=== PATIENT | female | born 1945 | race Caucasian/White ===

== ENCOUNTER 2017-12-16 19:43 | Inpatient (IN) | payer MEDICARE, BC ==
[~2017-12-16] VITALS: Ht 157.5 cm; Wt 76.7 kg
[2017-12-16] VITALS (7 sets, daily range): BP systolic 126–155; BP diastolic 58–84
[~2017-12-16 19:43] MED LIST: CYCL10TA2 PO; FERR325T14 PO; LEVO150T5 PO; LEVO75TA PO; SERT100T8 PO; SERT50TA PO; SIMV40TA3 PO; VENTOLIN HFA18 GM IH
[2017-12-16] MEDS ORDERED: FERR325T14 PO (20:54)
[2017-12-16] MEDS ORDERED: ASCO10002 PO (20:54)
[2017-12-16] MEDS ORDERED: SERT100T PO (20:55)
[2017-12-16] MEDS ORDERED: DOCU-109 PO (20:56)
[2017-12-16] MEDS ORDERED: ONDANSETRON PF 4 MG/2 ML VIAL. IV PRN (21:45)
[2017-12-16] MEDS ORDERED: ACETAMINOPHEN 325 MG TABLET. PO PRN (21:45)
[2017-12-16] MEDS ORDERED: ASPI81TA59 PO (21:55)
[2017-12-16] MEDS ORDERED: oxyCODONE/APAP 5/325 1 TAB TABLET PO ONE (22:00)
[2017-12-16] MEDS: PANTOPRAZOLE SODIUM IV DRIP 80 MG in IV NORMAL SALINE 100ML 100 ML IV SCH (22:23)
[2017-12-16] MEDS ORDERED: IV RINGERS,LACTATED 1000ML 1,000 ML IV SCH (23:00)
[2017-12-16] MEDS: traZODone 50 MG TABLET. PO PRN (23:35)
[2017-12-16] MEDS ORDERED: NON FORMULARY ITEM (Albuterol Sulfate (Ventolin Hfa Inhaler) 2 PUFF) IH SCH (23:45)
[2017-12-16] MEDS ORDERED: 0.9 % SODIUM CHLORIDE 10 ML DISP.SYRIN. IV PRN (23:45)
[2017-12-16] MEDS ORDERED: BISACODYL 10 MG SUPP.RECT. PR PRN (23:45)
[2017-12-17] VITALS (14 sets, daily range): BP systolic 108–139; BP diastolic 49–72
[2017-12-17] MEDS ORDERED: ALBUTEROL SULFATE 2.5 MG/3 ML NEBU. NEB PRN (01:00)
[2017-12-17 04:39] LABS: HEMATOCRIT 31.5 % (36.0-47.0); RED BLOOD COUNT 3.78 x10^6/uL (3.50-5.40); RED CELL DISTRIBUTION WIDTH 19.1 % (11.5-14.5); WHITE BLOOD COUNT 4.7 x10^3/uL (4.0-11.0)
[2017-12-17 05:04] LABS: CALCIUM 8.8 mg/dL (8.5-10.1); CREATININE 0.9 mg/dL (0.6-1.0); GFR 61.9; POTASSIUM 3.6 mmol/L (3.5-5.1)
[2017-12-17] MEDS: PANTOPRAZOLE SODIUM IV DRIP 80 MG in IV NORMAL SALINE 100ML 100 ML IV SCH (08:19)
[2017-12-17] MEDS: LEVOTHYROXINE SODIUM IVP SCH (08:20)
[2017-12-17] MEDS: NORMAL SALINE IVP SCH (08:20)
[2017-12-17] MEDS: SERTRALINE 50 MG TABLET. PO SCH (08:27)
[2017-12-17] MEDS: ASCORBIC ACID 500 MG TABLET PO SCH ×2 (08:27→20:46)
--- NOTE | 2017-12-17 09:41 | PDOC2 ---
GI CONSULT Reason For Consult: Upper GI Bleed HPI: HPI: 72 y/o female admitted through ER. Reports "coffee-ground emesis" on Saturday and Saturday. H/o anemia on iron 500mg BID. Previous GI evaluation by Dr. Das - reports normal EGD and colonoscopy in 2000 and 2014, also reports SBCE in 2010 w/ "ulcers in the small bowel." Has been on and off iron since then. In September, anemia was worse requiring blood transfusion and IV infusion at [facility] - at that time was advised to increase PO iron from QD to BID. Stools are always dark due to iron - no change in this. Has periumbilical pain before vomiting, then resolves. Has some dizziness and SOA; however, neither are new symptoms. H/o AVR on ASA 81mg QD. No NSAIDs. Typically no issues w/ n/v or abd pain. No diarrhea or constipation. No change in appetite or weight. Occasional heartburn, takes Tums PRN. No dysphagia. S/p cholecystectomy. No liver or pancreas history. Hgb 11 (she thinks this is baseline - has labs Q 6 months w/ car sander), normal BUN. PMH: PMH: AVR, asthma, hysterectomy, appendectomy, cholecystectomy, cataract removal, right rotator cuff repair FH: Family History: Other (sister has ulcers) Social History: Smoke: Quit ALCOHOL: none Drugs: None ROS: GEN: Denies fevers, chills, sweats HEENT: Denies blurred vision, sore throat CV: Denies chest pain RESP: +SOA GI: Per HPI : Denies hematuria, dysuria ENDO: Denies weight changes NEURO: +dizziness MSK: +arthritis pain SKIN: Denies jaundice, pruritus Vitals: Vitals: Vital Signs Date Time Temp Pulse Resp B/P (MAP) Pulse Ox O2 Delivery O2 Flow Rate FiO2 12/17/17 06:00 43 15 133/58 (83) 99 Nasal Cannula 2.0 12/17/17 04:00 97.1 97.1 Labs: Labs: Laboratory Tests Test 12/17/17 04:10 White Blood Count 4.7 x10^3/uL (4.0-11.0) Red Blood Count 3.78 x10^6/uL (3.50-5.40) Hemoglobin 11.0 g/dL (12.0-15.5) Hematocrit 31.5 % (36.0-47.0) Mean Corpuscular Volume 83 fL (79-100) Mean Corpuscular Hemoglobin 29 pg (25-35) Mean Corpuscular Hemoglobin Concent 35 g/dL (31-37) Red Cell Distribution Width 19.1 % (11.5-14.5) Platelet Count 164 x10^3/uL (140-400) Activated Partial Thromboplast Time 32 SEC (24-38) Sodium Level 142 mmol/L (136-145) Potassium Level 3.6 mmol/L (3.5-5.1) Chloride Level 108 mmol/L (98-107) Carbon Dioxide Level 27 mmol/L (21-32) Anion Gap 7 (6-14) Blood Urea Nitrogen 16 mg/dL (7-20) Creatinine 0.9 mg/dL (0.6-1.0) Estimated GFR (Cockcroft-Gault) 61.9 Glucose Level 91 mg/dL (70-99) Calcium Level 8.8 mg/dL (8.5-10.1) Allergies: Coded Allergies: mushroom (Verified Allergy, Severe, Swelling, 01/26/15) procaine (Verified Allergy, Intermediate, 01/24/15) Medications: Current Medications Medications (Trade) Dose Ordered Sig/Jose Route PRN Reason Start Time Stop Time Status Last Admin Dose Admin Oxycodone/ Acetaminophen (Percocet 5/325) 1 tab 1X ONCE PO 12/16/17 22:00 12/16/17 22:01 DC 12/16/17 22:23 Ringer's Solution 1,000 ml @ 75 mls/hr [id number] IV 12/16/17 23:00 12/16/17 23:01 Trazodone HCl (Desyrel) 50 mg PRN Q6HRS PRN PO HICCUPS 12/16/17 21:45 12/16/17 23:35 Pantoprazole Sodium 80 mg/ Sodium Chloride 100 ml @ 10 mls/hr Q10H IV 12/16/17 22:15 12/17/17 08:19 Ascorbic Acid (Vitamin C) 1,000 mg BID PO 12/17/17 09:00 12/17/17 08:27 Sertraline HCl (Zoloft) 100 mg DAILY PO 12/17/17 09:00 12/17/17 08:27 Levothyroxine Sodium 75 mcg/ Sodium Chloride 5 ml @ 100 mls/hr DAILY IVP 12/17/17 09:00 12/17/17 08:20 Imaging: Imaging: - PE: GEN: NAD HEENT: Atraumatic, PERRL LUNGS: NC, clear anteriorly HEART: bradycardic ABD: NABS, S/ND/NT EXTREMITY: No edema SKIN: pale NEURO/PSYCH: A & O 3 A/P: A/P: Coffee-ground emesis H/o anemia - required blood transfusion and IV iron in 09/2017, has been on PO iron BID H/o "small bowel ulcers" - reportedly on SBCE in 2010 Occasional heartburn CRC screen - UTD, reports last colonoscopy w/ Dr. Das in 2014 H/o AVR on ASA -- Keep NPO for EGD this afternoon r/o UGI source. Continue PPI, monitor labs. NICOLE GIBBONS Dec 17, 2017 09:41
[2017-12-17] MEDS ORDERED: IV RINGERS,LACTATED 1000ML 1,000 ML IV SCH ×3 (09:56→14:00)
[2017-12-17] MEDS ORDERED: fentaNYL PF VIAL 100 MCG/2 ML VIAL IV PRN ×4 (10:00→10:30)
[2017-12-17] MEDS ORDERED: MIDAZOLAM HCL/PF 2 MG/2 ML VIAL. IV PRN (10:00)
[2017-12-17] MEDS ORDERED: LIDOCAINE 1% PF 2 ML VIAL. ID PRN ×2 (10:00→10:30)
[2017-12-17] MEDS ORDERED: PROCHLORPERAZINE 10 MG/2 ML VIAL. IV PRN (10:30)
[2017-12-17] MEDS ORDERED: oxyCODONE/APAP 5/325 1 TAB TABLET PO ONE (10:30)
[2017-12-17] MEDS ORDERED: ONDANSETRON PF 4 MG/2 ML VIAL. IV PRN (10:30)
[2017-12-17] MEDS ORDERED: MORPHINE SULFATE 2 MG/ML VIAL. IV PRN (10:30)
--- NOTE | 2017-12-17 14:06 | HP ---
ADMIT DATE: CHIEF COMPLAINT: Hematemesis and abdominal pain. HISTORY OF PRESENT ILLNESS: The patient is a pleasant 72-year-old female who presents to the ER with abdominal pain. She has been having coffee-ground emesis on Saturday and Saturday. She had previous GI evaluation by Dr. Das. He did an EGD in 2010. She says they did see some small ulcers on another endoscopy. She has been getting intermittent transfusions at [facility] because she has chronic anemia as well. She has been advised to take p.o. iron. Stools have always been dark, but no changes. She did have some dizziness and shortness of breath. In the ER, she was noted to be anemic with a hemoglobin of 11. I have discussed the case with ER physician. It appears she has a GI bleed. We are going to go ahead, admit the patient and consult GI. We have placed on proton pump inhibitor. She is going to go for endoscopy this afternoon. PAST MEDICAL HISTORY: AVR, asthma, GI bleeds, peptic ulcer disease, right rotator cuff, cataract surgery, cholecystectomy, appendectomy, hysterectomy. ALLERGIES: MUSHROOMS and PROCAINE. FAMILY HISTORY: Diabetes. SOCIAL HISTORY: She does not drink, smoke or take drugs. MEDICATIONS: She is on 11 home meds including albuterol, cyclobenzaprine, iron, simvastatin, aspirin, sertraline, docusate, Synthroid, and vitamin C. REVIEW OF SYSTEMS: GENERAL: No history of weight change, weakness or fevers. SKIN: No bruising, hair changes or rashes. EYES: No blurred, double or loss of vision. NOSE AND THROAT: No history of nosebleeds, hoarseness or sore throat. HEART: No history of palpitations, chest pain or shortness of breath on exertion. LUNGS: Denies cough, hemoptysis, wheezing or shortness of breath. GASTROINTESTINAL: She complains of abdominal pain and hematemesis. GENITOURINARY: No history of frequency, urgency, hesitancy or nocturia. NEUROLOGIC: Denies history of numbness, tingling, tremor or weakness. PSYCHIATRIC: No history of panic, anxiety or depression. ENDOCRINE: No history of heat or cold intolerance, polyuria or polydipsia. EXTREMITIES: Denies muscle weakness, joint pain, pain on walking or stiffness. PHYSICAL EXAMINATION: VITAL SIGNS: Temperature afebrile, pulse 92, respirations 18, blood pressure is 135/72, O2 sat 92% on 2 liters. GENERAL: She is alert, cooperative, weak. HEART: Normal S1, S2 with a soft S3, regular rhythm. LUNGS: Clear to auscultation in all lung mckeon. ABDOMEN: Soft, tender in the epigastrium. EXTREMITIES: Trace edema. Pedal pulses are intact. ENDOCRINE: No thyromegaly. LYMPHATICS: No cervical nodes or axillary nodes were noted. HEMATOPOIETIC: No bruising. PSYCHIATRIC: She seems to be stable, but a little flat on her affect. LABORATORY DATA: White count 4, hemoglobin 11, platelets 164. Electrolytes are normal. ASSESSMENT AND PLAN: Gastrointestinal bleed. The patient will be admitted. We will start IV proton pump inhibitors. Cardiac monitoring. Consult GI. She is scheduled for endoscopy this afternoon. Continue previous home meds, IV fluids, IV proton pump inhibitors. We will follow her hemoglobin closely and transfuse if she is less than 8. PROGNOSIS: Guarded. REBECCA TOURE DO DR: DIANE/sanjay JOB#: [id number] / [id number]
[2017-12-17] MEDS ORDERED: PROPOFOL 20 ML IV ONE (14:56)
--- NOTE | 2017-12-17 15:06 | PDOC4 ---
PROCEDURE Procedure EGD coffee ground emesis anesthesia EGD- normal esophagus, gastritis, normal small bowel- NO blood or coffee grounds Plan- check bx, continue PPI, add carafate, repeat pill cam as outpt CARMELO SANCHEZ MD Dec 17, 2017 15:06
[2017-12-17] MEDS: SIMVASTATIN 40 MG TABLET. PO SCH (20:45)
[2017-12-17] MEDS: SUCRALFATE 1 GM TABLET. PO SCH (20:46)
[2017-12-17] MEDS: HYDROcodone/APAP 5/325MG 1 TAB TABLET PO PRN (21:39)
[2017-12-18] VITALS (9 sets, daily range): BP systolic 99–135; BP diastolic 36–63
[2017-12-18] MEDS: traZODone 50 MG TABLET. PO PRN ×2 (01:53→20:10)
[2017-12-18] MEDS: PANTOPRAZOLE 40 MG TABLET.DR. PO SCH (07:45)
[2017-12-18] MEDS: NORMAL SALINE IVP SCH (07:45)
[2017-12-18] MEDS: LEVOTHYROXINE SODIUM IVP SCH (07:45)
[2017-12-18] MEDS: HYDROcodone/APAP 5/325MG 1 TAB TABLET PO PRN ×3 (08:11→20:10)
[2017-12-18] MEDS: ASCORBIC ACID 500 MG TABLET PO SCH ×2 (08:41→20:09)
[2017-12-18] MEDS: SERTRALINE 50 MG TABLET. PO SCH (08:41)
[2017-12-18] MEDS: SUCRALFATE 1 GM TABLET. PO SCH ×2 (10:49→20:10)
[2017-12-18] MEDS ORDERED: SUCR1TAB35 PO (11:52)
[2017-12-18] MEDS ORDERED: Pantoprazole PO (11:52)
--- NOTE | 2017-12-18 11:55 | PDOC ---
PROGRESS NOTES Chief Complaint Chief Complaint GAstritis, small hiatal hernia status post EGD 12/17/17 Coffee-ground emesis H/o anemia - required blood transfusion and IV iron in 09/2017, has been on PO iron BID H/o "small bowel ulcers" - reportedly on SBCE in 2010 Occasional heartburn CRC screen - UTD, reports last colonoscopy w/ Dr. Das in 2014 H/o AVR on ASA ORTHOSTASIS with dizziness History of Present Illness History of Present Illness Cleared from GI to go home, tolerating a diet, hemodynamically stable. But now tells me orthostatic and dizzy She did drop 10 points from supine to sitting position Plan: Abdominal binder Can consult neurology If no further workup and feels better can go home today with PPI and Carafate by GI - I have Rx'd on chart Vitals Vitals Vital Signs Date Time Temp Pulse Resp B/P (MAP) Pulse Ox O2 Delivery O2 Flow Rate FiO2 12/18/17 11:08 104/40 (61) 12/18/17 11:00 98.1 55 97 Room Air 98.1 12/18/17 09:25 95.8 12/18/17 07:00 16 Physical Exam General: Alert, Oriented X3, Cooperative, No acute distress Heart: Regular rate, Normal S1, Normal S2, No murmurs Lungs: Clear Abdomen: Normal bowel sounds, Soft, No tenderness Extremities: No clubbing, No cyanosis, No edema Skin: No rashes, No breakdown, No significant lesion Review of Systems Review of Systems dizzy, otherwise rest of ROS 14 point negative Comment Review of Relevant I have reviewed the following items pradeep (where applicable) has been applied. Labs Laboratory Tests Test 12/16/17 21:00 12/17/17 04:10 Nasal Screen MRSA (PCR) Negative (Negative) White Blood Count 4.7 x10^3/uL (4.0-11.0) Red Blood Count 3.78 x10^6/uL (3.50-5.40) Hemoglobin 11.0 g/dL (12.0-15.5) Hematocrit 31.5 % (36.0-47.0) Mean Corpuscular Volume 83 fL (79-100) Mean Corpuscular Hemoglobin 29 pg (25-35) Mean Corpuscular Hemoglobin Concent 35 g/dL (31-37) Red Cell Distribution Width 19.1 % (11.5-14.5) Platelet Count 164 x10^3/uL (140-400) Reticulocyte Count (auto) 1.5 % (0.5-2.5) Activated Partial Thromboplast Time 32 SEC (24-38) Sodium Level 142 mmol/L (136-145) Potassium Level 3.6 mmol/L (3.5-5.1) Chloride Level 108 mmol/L (98-107) Carbon Dioxide Level 27 mmol/L (21-32) Anion Gap 7 (6-14) Blood Urea Nitrogen 16 mg/dL (7-20) Creatinine 0.9 mg/dL (0.6-1.0) Estimated GFR (Cockcroft-Gault) 61.9 Glucose Level 91 mg/dL (70-99) Calcium Level 8.8 mg/dL (8.5-10.1) Iron Level 51 ug/dL (50-170) Total Iron Binding Capacity 262 ug/dL (250-450) Iron Saturation 19 % (15-34) Vitamin B12 Level 553 pg/mL (247-911) Medications Current Medications Ondansetron HCl (Zofran) 4 mg PRN Q6HRS PRN IV NAUSEA/VOMITING; Start at 21:45 Oxycodone/ Acetaminophen (Percocet 5/325) 1 tab 1X ONCE PO Last administered on 12/16/17at 22:23; Start 12/16/17 at 22:00; Stop 12/17/17 at 18:11; Status DC Acetaminophen (Tylenol) 650 mg PRN Q6HRS PRN PO MILD PAIN / TEMP; Start at 21:45 Ringer's Solution 1,000 ml @ 75 mls/hr [id number] IV Last administered on at 23:01; Start 12/16/17 at 23:00; Stop 12/17/17 at 18:11; Status DC Trazodone HCl (Desyrel) 50 mg PRN Q6HRS PRN PO HICCUPS Last administered on at 01:53; Start 12/16/17 at 21:45 Pantoprazole Sodium 80 mg/ Sodium Chloride 100 ml @ 10 mls/hr Q10H IV Last administered on 12/17/17at 08:19; Start 12/16/17 at 22:15; Stop 12/17/17 at 15 :09; Status DC Influenza Virus Vaccine (Afluria Trivalent [id number] Syringe) 0.5 ml ONCE ONCE VAX IM Last administered on 12/17/17at 17:47; Start 12/17/17 at 09:00; Stop 12/17/17 at 09:01; Status DC Sodium Chloride (Normal Saline Flush) 3 ml QSHIFT PRN IV AFTER MEDS AND BLOOD DRAWS; Start 12/16/17 at 23:45 Bisacodyl (Dulcolax Supp) 10 mg PRN DAILY PRN [place] CONSTIPATION; Start 12/16/17 at 23:45 Non-Formulary Medication (Albuterol Sulfate (Ventolin Hfa Inhaler)) 2 puff PRN Q4-6HRS IH ; Start 12/16/17 at 23:45; Status UNV Ascorbic Acid (Vitamin C) 1,000 mg BID PO Last administered on 12/18/17at 08:41 ; Start 12/17/17 at 09:00 Sertraline HCl (Zoloft) 100 mg DAILY PO Last administered on 12/18/17at 08:41; Start 12/17/17 at 09:00 Simvastatin (Zocor) 40 mg QHS PO Last administered on 12/17/17at 20:45; Start 12/17/17 at 21:00 Levothyroxine Sodium 75 mcg/ Sodium Chloride 5 ml @ 100 mls/hr DAILY IVP Last administered on 12/18/17at 07:45; Start 12/17/17 at 09:00; Stop 12/18/17 at 09 :00; Status DC Albuterol Sulfate (Ventolin Neb Soln) 2.5 mg PRN Q4HRS PRN NEB SHORTNESS OF BREATH; Start 12/17/17 at 01:00 Midazolam HCl (Versed) 2 mg PRN 1X PRN IV PRIOR TO PROCEDURE; Start 12/17/17 at 10:00; Stop 12/17/17 at 18:00; Status DC Fentanyl Citrate (Fentanyl 2ml Vial) 25 mcg PRN Q5MIN PRN IV X 2 DOSES FOR PAIN ; Start 12/17/17 at 10:00; Stop 12/17/17 at 18:00; Status DC Fentanyl Citrate (Fentanyl 2ml Vial) 50 mcg PRN Q5MIN PRN IV X 2 DOSES FOR PAIN ; Start 12/17/17 at 10:00; Stop 12/17/17 at 18:00; Status DC Ringer's Solution 1,000 ml @ 125 mls/hr Q8H IV Last administered on at 12:05; Start 12/17/17 at 09:56; Stop 12/17/17 at 13:59; Status DC Lidocaine HCl (Xylocaine-Mpf 1% 2ml Vial) 2 ml 1X PRN PRN ID IV START; Start 12/17/17 at 10:00; Stop 12/17/17 at 18:00; Status DC Ondansetron HCl (Zofran) 4 mg PRN Q6HRS PRN IV NAUSEA/VOMITING; Start at 10:30; Stop 12/18/17 at 10:29; Status UNV Fentanyl Citrate (Fentanyl 2ml Vial) 25 mcg PRN Q5MIN PRN IV MILD PAIN; Start 12/17/17 at 10:30; Stop 12/18/17 at 10:29; Status UNV Fentanyl Citrate (Fentanyl 2ml Vial) 50 mcg PRN Q5MIN PRN IV MODERATE TO SEVERE PAIN; Start 12/17/17 at 10:30; Stop 12/18/17 at 10:29; Status UNV Morphine Sulfate (Morphine Sulfate) 1 mg PRN Q10MIN PRN IV SEVERE PAIN; Start 12/17/17 at 10:30; Stop 12/17/17 at 18:11; Status DC Ringer's Solution 1,000 ml @ 30 mls/hr Q24H IV ; Start 12/17/17 at 10:18; Stop 12/17/17 at 22:17; Status UNV Lidocaine HCl (Xylocaine-Mpf 1% 2ml Vial) 2 ml 1X PRN PRN ID IV START; Start 12/17/17 at 10:30; Stop 12/18/17 at 10:29; Status UNV Prochlorperazine Edisylate (Compazine) 5 mg PACU PRN PRN IV NAUSEA, MRX1; Start 12/17/17 at 10:30; Stop 12/17/17 at 19:00; Status DC Oxycodone/ Acetaminophen (Percocet 5/325) 1 tab 1X ONCE PO Last administered on 12/17/17at 10:30; Start 12/17/17 at 10:30; Stop 12/17/17 at 10:31; Status DC Ringer's Solution 1,000 ml @ 75 mls/hr [id number] IV Last administered on at 13:58; Start 12/17/17 at 14:00; Stop 12/17/17 at 18:11; Status DC Propofol 20 ml @ As Directed STK-MED ONCE IV ; Start 12/17/17 at 14:56; Stop 12/17/17 at 14:57; Status DC Sucralfate (Carafate) 1 gm BID@1000,2200 PO Last administered on 12/18/17at 10: 49; Start 12/17/17 at 22:00 Pantoprazole Sodium (Protonix) 40 mg DAILYAC PO Last administered on at 07:45; Start 12/18/17 at 07:30 Acetaminophen/ Hydrocodone Bitart (Lortab 5/325) 1 tab PRN Q4HRS PRN PO PAIN Last administered on 12/18/17at 08:11; Start 12/17/17 at 17:30 Levothyroxine Sodium (Synthroid) 150 mcg DAILY06 PO ; Start 12/19/17 at 06:00 Active Scripts Active [Pantoprazole] 40 MG Tablet.dr 40 Mg PO DAILYAC 30 Days Carafate (Sucralfate) 1 Gm Tablet 1 Gm PO BID@1000,2200 30 Days Ferrous Sulfate 325 Mg Tablet 1 Tab PO DAILY Reported Children's Aspirin (Aspirin) 81 Mg Tab.chew 81 Mg PO DAILY Colace (Docusate Sodium) 100 Mg Capsule 1 Cap PO PRN Zoloft (Sertraline Hcl) 100 Mg Tablet 1 Tab PO BID Vitamin C (Ascorbic Acid) 1,000 Mg Tablet 1,000 Mg PO BID Ferrous Sulfate 325 Mg Tablet 500 Mg PO BID Cyclobenzaprine Hcl 10 Mg Tablet 10 Mg PO PRN TID PRN Levothyroxine Sodium 150 Mcg Tablet 150 Mcg PO DAILYAC Sertraline Hcl 100 Mg Tablet 100 Mg PO DAILY Simvastatin 40 Mg Tablet 1 Tab PO QHS Ventolin Hfa Inhaler (Albuterol Sulfate) 18 Gm Hfa.aer.ad 2 Puff IH PRN Q4-6HRS Vitals/I & O Vital Sign - Last 24 Hours 12/17/17 12/17/17 12/17/1712/17/18 12:00 12:00 13:49 13:49 Temp 97 97.0 Pulse 51 Resp 16 18 B/P (MAP) 133/62 (85) Pulse Ox 95 95 O2 Delivery Room Air Room Air Room Air O2 Flow Rate 2.0 12/17/17 12/17/17 12/17/17 12/17/17 15:05 15:20 15:48 16:02 Temp 97.5 97.5 Pulse 52 49 Resp 16 18 16 B/P (MAP) 140/66 115/56 114/64 (81) Pulse Ox 95 97 95 O2 Delivery Room Air Room Air Room Air O2 Flow Rate 97.0 12/17/17 12/17/17 12/17/17 12/17/17 18:00 19:00 20:00 21:39 Temp 97.7 95.8 97.7 95.8 Pulse 51 50 Resp 18 16 B/P (MAP) 138/51 (80) 138/49 (78) Pulse Ox 95 96 O2 Delivery Room Air Room Air Room Air Room Air O2 Flow Rate 97.0 95.8 97.0 12/17/17 12/18/17 12/18/17 12/18/17 23:00 03:00 07:00 08:00 Temp 98.4 95.4 97.7 98.4 95.4 97.7 Pulse 48 49 51 Resp 16 16 16 B/P (MAP) 131/63 (85) 135/59 (84) 99/57 (71) Pulse Ox 96 92 92 O2 Delivery Room Air Room Air Room Air Room Air 12/18/17 12/18/17 12/18/17 12/18/17 08:11 08:45 09:25 11:00 Temp 98.1 98.1 Pulse 54 55 B/P (MAP) 100/63 (75) 118/55 (76) Pulse Ox 92 92 97 O2 Delivery Room Air Room Air Room Air O2 Flow Rate 95.8 95.8 12/18/17 12/18/17 11:05 11:08 B/P (MAP) 107/52 (70) 104/40 (61) Intake and Output 12/17/17 12/17/17 12/18/17 15:00 23:00 07:00 Intake Total 50 ml 532 ml 400 ml Balance 50 ml 532 ml 400 ml TERMULO,BRIGITTE Y MD Dec 18, 2017 11:55
--- NOTE | 2017-12-18 12:01 | PDOC ---
Subjective: Subjective: I saw her earlier this morning. Tolerating PO - no n/v of coffee-ground emesis. Feels dizzy when she sits up - room spins a little. Says she "doesn't retain salt." Wants to restart iron pills. Objective: Vital Signs: Vital Signs Date Time Temp Pulse Resp B/P (MAP) Pulse Ox O2 Delivery O2 Flow Rate FiO2 12/18/17 11:08 104/40 (61) 12/18/17 11:00 98.1 55 97 Room Air 98.1 12/18/17 09:25 95.8 12/18/17 07:00 16 Imaging: EGD 12/17 normal esophagus, gastritis, normal small bowel- NO blood or coffee grounds PE: GEN: NAD LUNGS: CTAB HEART: bradycardic ABD: NABS, S/ND/NT NEURO/PSYCH: A & O 3 A/P: Coffee-ground emesis - no recurrence -gastritis on EGD as above, path pending Chronic anemia -reports SBCE in 2010, last colonoscopy 2014 -- Plans to check hemogram tomorrow. Note neurology consulted re: dizziness. Continue PPI and Carate. Resume PO iron. Await gastric biopsies r/o H. pylori. Will plan to follow-up outpt re: SBCE - might need colonoscopy as well to satisfy insurance requirements. NICOLE GIBBONS Dec 18, 2017 12:01
[2017-12-18] MEDS ORDERED: FERROUS SULFATE ORAL 300 MG/5 ML SOLUTION. PO SCH (12:30)
[2017-12-18] MEDS ORDERED: BENZOCAINE/MENTHOL LOZENGE. PO PRN (13:45)
--- NOTE | 2017-12-18 15:03 | RAD ---
Carotid ultrasound, 12/18/2017: HISTORY: Dizziness, unsteadiness Duplex evaluation of the carotid arteries and neck was performed including grayscale, color-flow and spectral Doppler analysis. There is only minimal smooth plaquing at the carotid bifurcations. The peak systolic velocity in the right internal carotid artery is 84 cm/s with an end-diastolic velocity of 17 cm/s and an internal carotid to common carotid artery ratio 1.1. On the left the peak systolic velocity in the internal carotid artery is 106 cm/s with an end-diastolic velocity of 16 cm/s and an internal carotid to common carotid artery ratio of 1.3. These Doppler findings suggest luminal narrowing in the 0-50 percent diameter range. Antegrade flow is present in both vertebral arteries in the neck. IMPRESSION: Minimal atherosclerotic plaquing at the carotid bifurcations with underlying luminal narrowing in the 0-50 percent diameter range bilaterally. Note: Stenosis calculations for CT, MRA and conventional angiography are based upon determination of the distal ICA diameter in accordance with the NASCET methodology. Electronically signed by: Glen Chamberlain MD (12/18/2017 3:00 PM) [facility]
--- NOTE | 2017-12-18 15:46 | PDOC2 ---
NEUROLOGY CONSULT Date of Admission Date of Admission DATE: 12/18/17 TIME: 15:27 Reason for Consult Reason for Consult: IMPRESSION: Worsening of dizziness. Gait instability. Abnormal semi controllable movements. Vertigo. BPPV ? Peptic ulcer disease. Gastritis. Obesity. RECOMMENDATIONS/PLAN: Brain MRI w/o contrast. Lab: see orders. Meclizine 25 mg tid. Treat medical diseases. OT/PT. Discussed with her daughter at bedside on 12/08/17. Carotid A US + Doppler on 12/18/17: No high grade stenosis. HISTORY OF THE PRESENT ILLNESS: 72-y-old female patient with above medical and GI diseases was admitted into [facility] for further evaluation. While performing EGD procedure on her, she developed symptoms of dizziness, light headiness, vertigo , sense of room and self spinning. Her symptoms persistent and became obvious when she change positions, but orthostatic hypotension occurred. She stated she had similar symptoms before about several times a year, but nerve as severe as this time. PAST MEDICAL HISTORY: AVR, asthma, GI bleeds, peptic ulcer disease. Vertigo. PAST SURGERY HISTORY: Right rotator cuff, cataract surgery, cholecystectomy, appendectomy, hysterectomy. ALLERGIES: MUSHROOMS and PROCAINE. FAMILY HISTORY: Diabetes. MEDICATIONS: Refer to [facility] SOCIAL HISTORY: Lives at home. Denies current smoking, drinking, and illicit drug use. She was a former smoker. REVIEW OF SYSTEMS: Constitutional: Obesity. Head: No traumatic brain or head injury. Skin: No edema, or rash. Ear: No infection. Eyes: No vision loss or color blindness. Nose: No bleeding or purulent discharges. Hearing: Hearing decrease. Neck: No injury. Breast: No history of cancer, masses,or discharges. Cardiac: No NH, arrhythmia.. Pulmonary: No COPD. GI: GI ulcer, GI bleeding. Urinary/genital: UTI. Endocrinologic: Obesity. Skeletomuscular: No muscular atrophy, deformity. Neurological: see HP. Psychiatric: Denies drug use/abuse. Otherwise, not [id number] review of systems. PHYSICAL EXAMINATION: General appearance is in subacute distress. HEENT: Normocephalic and nontraumatic. Eyes, nose, ears, and throat are unremarkable. Neck is supple. No lymphadenopathy. No bruits are heard over the carotid artery. No crepitus. Cardiovascular: S1, S2, regular rate and rhythm. Pulmonary: Clear to auscultation bilaterally. Abdomen: Bowel sounds are positive. Extremities: No rash, lesions, or edema. No restriction of range of motion NEUROLOGICAL EXAMINATION: Alert Oriented to time, place and person. PERRL. EOMI. CN: no focal findings. Muscle tone: within normal. Muscle strength: 5 DTR: 2 Plantar reflex: Flexor response bilaterally Gait: not examined in bed. Sensory exam: no abnormal findings. No cerebellar signs elicited. F-T-N test fine. Continued movements noted in UE and LE. Current Medications Current Medications Current Medications Ondansetron HCl (Zofran) 4 mg PRN Q6HRS PRN IV NAUSEA/VOMITING; Start at 21:45 Oxycodone/ Acetaminophen (Percocet 5/325) 1 tab 1X ONCE PO Last administered on 12/16/17at 22:23; Start 12/16/17 at 22:00; Stop 12/17/17 at 18:11; Status DC Acetaminophen (Tylenol) 650 mg PRN Q6HRS PRN PO MILD PAIN / TEMP; Start at 21:45 Ringer's Solution 1,000 ml @ 75 mls/hr [id number] IV Last administered on at 23:01; Start 12/16/17 at 23:00; Stop 12/17/17 at 18:11; Status DC Trazodone HCl (Desyrel) 50 mg PRN Q6HRS PRN PO HICCUPS Last administered on at 01:53; Start 12/16/17 at 21:45 Pantoprazole Sodium 80 mg/ Sodium Chloride 100 ml @ 10 mls/hr Q10H IV Last administered on 12/17/17at 08:19; Start 12/16/17 at 22:15; Stop 12/17/17 at 15 :09; Status DC Influenza Virus Vaccine (Afluria Trivalent [id number] Syringe) 0.5 ml ONCE ONCE VAX IM Last administered on 12/17/17at 17:47; Start 12/17/17 at 09:00; Stop 12/17/17 at 09:01; Status DC Sodium Chloride (Normal Saline Flush) 3 ml QSHIFT PRN IV AFTER MEDS AND BLOOD DRAWS; Start 12/16/17 at 23:45 Bisacodyl (Dulcolax Supp) 10 mg PRN DAILY PRN [place] CONSTIPATION; Start 12/16/17 at 23:45 Non-Formulary Medication (Albuterol Sulfate (Ventolin Hfa Inhaler)) 2 puff PRN Q4-6HRS IH ; Start 12/16/17 at 23:45; Status UNV Ascorbic Acid (Vitamin C) 1,000 mg BID PO Last administered on 12/18/17at 08:41 ; Start 12/17/17 at 09:00 Sertraline HCl (Zoloft) 100 mg DAILY PO Last administered on 12/18/17at 08:41; Start 12/17/17 at 09:00 Simvastatin (Zocor) 40 mg QHS PO Last administered on 12/17/17at 20:45; Start 12/17/17 at 21:00 Levothyroxine Sodium 75 mcg/ Sodium Chloride 5 ml @ 100 mls/hr DAILY IVP Last administered on 12/18/17at 07:45; Start 12/17/17 at 09:00; Stop 12/18/17 at 09 :00; Status DC Albuterol Sulfate (Ventolin Neb Soln) 2.5 mg PRN Q4HRS PRN NEB SHORTNESS OF BREATH; Start 12/17/17 at 01:00 Midazolam HCl (Versed) 2 mg PRN 1X PRN IV PRIOR TO PROCEDURE; Start 12/17/17 at 10:00; Stop 12/17/17 at 18:00; Status DC Fentanyl Citrate (Fentanyl 2ml Vial) 25 mcg PRN Q5MIN PRN IV X 2 DOSES FOR PAIN ; Start 12/17/17 at 10:00; Stop 12/17/17 at 18:00; Status DC Fentanyl Citrate (Fentanyl 2ml Vial) 50 mcg PRN Q5MIN PRN IV X 2 DOSES FOR PAIN ; Start 12/17/17 at 10:00; Stop 12/17/17 at 18:00; Status DC Ringer's Solution 1,000 ml @ 125 mls/hr Q8H IV Last administered on at 12:05; Start 12/17/17 at 09:56; Stop 12/17/17 at 13:59; Status DC Lidocaine HCl (Xylocaine-Mpf 1% 2ml Vial) 2 ml 1X PRN PRN ID IV START; Start 12/17/17 at 10:00; Stop 12/17/17 at 18:00; Status DC Ondansetron HCl (Zofran) 4 mg PRN Q6HRS PRN IV NAUSEA/VOMITING; Start at 10:30; Stop 12/18/17 at 10:29; Status UNV Fentanyl Citrate (Fentanyl 2ml Vial) 25 mcg PRN Q5MIN PRN IV MILD PAIN; Start 12/17/17 at 10:30; Stop 12/18/17 at 10:29; Status UNV Fentanyl Citrate (Fentanyl 2ml Vial) 50 mcg PRN Q5MIN PRN IV MODERATE TO SEVERE PAIN; Start 12/17/17 at 10:30; Stop 12/18/17 at 10:29; Status UNV Morphine Sulfate (Morphine Sulfate) 1 mg PRN Q10MIN PRN IV SEVERE PAIN; Start 12/17/17 at 10:30; Stop 12/17/17 at 18:11; Status DC Ringer's Solution 1,000 ml @ 30 mls/hr Q24H IV ; Start 12/17/17 at 10:18; Stop 12/17/17 at 22:17; Status UNV Lidocaine HCl (Xylocaine-Mpf 1% 2ml Vial) 2 ml 1X PRN PRN ID IV START; Start 12/17/17 at 10:30; Stop 12/18/17 at 10:29; Status UNV Prochlorperazine Edisylate (Compazine) 5 mg PACU PRN PRN IV NAUSEA, MRX1; Start 12/17/17 at 10:30; Stop 12/17/17 at 19:00; Status DC Oxycodone/ Acetaminophen (Percocet 5/325) 1 tab 1X ONCE PO Last administered on 12/17/17at 10:30; Start 12/17/17 at 10:30; Stop 12/17/17 at 10:31; Status DC Ringer's Solution 1,000 ml @ 75 mls/hr [id number] IV Last administered on at 13:58; Start 12/17/17 at 14:00; Stop 12/17/17 at 18:11; Status DC Propofol 20 ml @ As Directed STK-MED ONCE IV ; Start 12/17/17 at 14:56; Stop 12/17/17 at 14:57; Status DC Sucralfate (Carafate) 1 gm BID@1000,2200 PO Last administered on 12/18/17at 10: 49; Start 12/17/17 at 22:00 Pantoprazole Sodium (Protonix) 40 mg DAILYAC PO Last administered on at 07:45; Start 12/18/17 at 07:30 Acetaminophen/ Hydrocodone Bitart (Lortab 5/325) 1 tab PRN Q4HRS PRN PO PAIN Last administered on 12/18/17at 13:30; Start 12/17/17 at 17:30 Levothyroxine Sodium (Synthroid) 150 mcg DAILY06 PO ; Start 12/19/17 at 06:00 Ferrous Sulfate (Iron Oral Solution) 300 mg BIDWMEALS PO Last administered on 12/18/17at 13:29; Start 12/18/17 at 12:30 Fluticasone Propionate (Flonase) 2 spray DAILY NS ; Start 12/18/17 at 14:30 Throat Lozenges (Cepacol Sore Throat Lozenge) 1 [place] PRN Q2HRS PRN PO SORE THROAT; Start 12/18/17 at 13:45; Status UNV Pseudoephedrine HCl (Sudafed 12-Hour) 120 mg BID PO ; Start 12/18/17 at 14:30 Active Scripts Active [Pantoprazole] 40 MG Tablet.dr 40 Mg PO DAILYAC 30 Days Carafate (Sucralfate) 1 Gm Tablet 1 Gm PO BID@1000,2200 30 Days Ferrous Sulfate 325 Mg Tablet 1 Tab PO DAILY Reported Children's Aspirin (Aspirin) 81 Mg Tab.chew 81 Mg PO DAILY Colace (Docusate Sodium) 100 Mg Capsule 1 Cap PO PRN Zoloft (Sertraline Hcl) 100 Mg Tablet 1 Tab PO BID Vitamin C (Ascorbic Acid) 1,000 Mg Tablet 1,000 Mg PO BID Ferrous Sulfate 325 Mg Tablet 500 Mg PO BID Cyclobenzaprine Hcl 10 Mg Tablet 10 Mg PO PRN TID PRN Levothyroxine Sodium 150 Mcg Tablet 150 Mcg PO DAILYAC Sertraline Hcl 100 Mg Tablet 100 Mg PO DAILY Simvastatin 40 Mg Tablet 1 Tab PO QHS Ventolin Hfa Inhaler (Albuterol Sulfate) 18 Gm Hfa.aer.ad 2 Puff IH PRN Q4-6HRS Allergies Allergies: Allergies Coded Allergies Type Severity Reaction Last Updated Verified mushroom Allergy Severe Swelling 12/17/17 Yes procaine Allergy Intermediate 12/17/17 Yes ROS Review of System The patient denies any associated fevers, chills, headache, ear pain, rhinorrhea , sore throat, stiff neck, productive cough, chest pain, shortness of breath, back or flank pain, abdominal pain, nausea, vomiting, diarrhea, constipation, dysuria, rash, numbness, weakness, tingling, incontinence, difficulty ambulating, or diaphoresis. Physical Exam Physical Exam General: Well developed, well nourished, no acute distress, well appearing HEENT: Pupils equally round and reactive to light, EOMI, no discharge, normal conjunctiva Neck: Supple, no nuchal rigidity, no JVD, trachea midline, no tenderness Cardiac: RRR, no murmurs, no gallops, no rubs Chest/Lungs: CTAB, no wheeze, no rhonchi, no crackles Abdomen: soft, non-distended, no guarding, no peritoneal signs, non-tender Back: No tenderness Extremities: no edema, pulses intact, non-tender,capillary refill <3 sec bilateral upper and lower extremities, Neuro: Alert and oriented x 4, no focal deficits, normal speech Vitals Vitals: Vital Signs Date Time Temp Pulse Resp B/P (MAP) Pulse Ox O2 Delivery O2 Flow Rate FiO2 12/18/17 13:30 97 Room Air 95.8 12/18/17 11:08 104/40 (61) 12/18/17 11:00 98.1 55 98.1 12/18/17 07:00 16 Labs Labs Laboratory Tests Test 12/16/17 21:00 12/17/17 04:10 Nasal Screen MRSA (PCR) Negative (Negative) White Blood Count 4.7 x10^3/uL (4.0-11.0) Red Blood Count 3.78 x10^6/uL (3.50-5.40) Hemoglobin 11.0 g/dL (12.0-15.5) Hematocrit 31.5 % (36.0-47.0) Mean Corpuscular Volume 83 fL (79-100) Mean Corpuscular Hemoglobin 29 pg (25-35) Mean Corpuscular Hemoglobin Concent 35 g/dL (31-37) Red Cell Distribution Width 19.1 % (11.5-14.5) Platelet Count 164 x10^3/uL (140-400) Reticulocyte Count (auto) 1.5 % (0.5-2.5) Activated Partial Thromboplast Time 32 SEC (24-38) Sodium Level 142 mmol/L (136-145) Potassium Level 3.6 mmol/L (3.5-5.1) Chloride Level 108 mmol/L (98-107) Carbon Dioxide Level 27 mmol/L (21-32) Anion Gap 7 (6-14) Blood Urea Nitrogen 16 mg/dL (7-20) Creatinine 0.9 mg/dL (0.6-1.0) Estimated GFR (Cockcroft-Gault) 61.9 Glucose Level 91 mg/dL (70-99) Calcium Level 8.8 mg/dL (8.5-10.1) Iron Level 51 ug/dL (50-170) Total Iron Binding Capacity 262 ug/dL (250-450) Iron Saturation 19 % (15-34) Vitamin B12 Level 553 pg/mL (247-911) Thyroid Stimulating Hormone (TSH) 1.033 uIU/mL (0.358-3.74) YAO COSME MD Dec 18, 2017 15:46
[2017-12-18] MEDS: MECLIZINE HCL 12.5 MG TABLET. PO SCH ×2 (17:41→20:09)
[2017-12-18] MEDS: PSEUDOEPHEDRINE ER 120 MG TABLET.ER. PO SCH ×2 (17:41→20:09)
[2017-12-18] MEDS: FLUTICASONE 50MCG/NASAL SPRAY 16GM BOTTLE. NS SCH (17:42)
[2017-12-18] MEDS: SIMVASTATIN 40 MG TABLET. PO SCH (20:09)
[2017-12-18] MEDS: FERROUS SULFATE 325 MG TABLET. PO SCH (20:10)
[2017-12-19] VITALS (8 sets, daily range): BP systolic 103–161; BP diastolic 55–95
[2017-12-19 04:49] LABS: HEMATOCRIT 33.8 % (36.0-47.0)
[2017-12-19] MEDS: LEVOTHYROXINE 150 MCG TABLET PO SCH (05:53)
[2017-12-19] MEDS: HYDROcodone/APAP 5/325MG 1 TAB TABLET PO PRN ×2 (05:53→20:09)
[2017-12-19 06:40] LABS: AMPHETAMINE/METHAMPHETAMINE NEG (NEG); BARBITURATES NEG (NEG); BENZODIAZEPINES NEG (NEG); CANNABINOIDS NEG (NEG); COCAINE NEG (NEG); METHADONE NEG (NEG); OPIATES POS (NEG); PHENCYCLIDINE NEG (NEG)
[2017-12-19] MEDS ORDERED: MECL25TA3 PO (08:31)
[2017-12-19] MEDS: FERROUS SULFATE 325 MG TABLET. PO SCH ×2 (09:34→20:10)
[2017-12-19] MEDS: SERTRALINE 50 MG TABLET. PO SCH (09:34)
[2017-12-19] MEDS: PANTOPRAZOLE 40 MG TABLET.DR. PO SCH (09:34)
[2017-12-19] MEDS: MECLIZINE HCL 12.5 MG TABLET. PO SCH ×3 (09:34→20:09)
[2017-12-19] MEDS: PSEUDOEPHEDRINE ER 120 MG TABLET.ER. PO SCH ×2 (09:34→20:10)
[2017-12-19] MEDS: ASCORBIC ACID 500 MG TABLET PO SCH ×2 (09:34→20:10)
[2017-12-19] MEDS: SUCRALFATE 1 GM TABLET. PO SCH ×2 (09:34→20:09)
[2017-12-19] MEDS: FLUTICASONE 50MCG/NASAL SPRAY 16GM BOTTLE. NS SCH (09:35)
--- NOTE | 2017-12-19 10:42 | PDOC ---
PROGRESS NOTES Chief Complaint Chief Complaint GAstritis, small hiatal hernia status post EGD 12/17/17 Coffee-ground emesis H/o anemia - required blood transfusion and IV iron in 09/2017, has been on PO iron BID H/o "small bowel ulcers" - reportedly on SBCE in 2010 Occasional heartburn CRC screen - UTD, reports last colonoscopy w/ Dr. Das in 2014 H/o AVR on ASA ORTHOSTASIS with dizziness History of Present Illness History of Present Illness appreciate neurology, started meclizine, that seemed to help with the dizziness She was orthostatic too But today this morning vomited black significant amount of blood-patient nauseated and dry heaving Plan: Awaiting brain MRI by neuro Meclizine Rx on chart Monitor for further episodes of vomiting dw RN Vitals Vitals Vital Signs Date Time Temp Pulse Resp B/P (MAP) Pulse Ox O2 Delivery O2 Flow Rate FiO2 12/19/17 08:00 Room Air 12/19/17 07:24 100 95.8 12/19/17 07:10 98.2 55 18 132/64 (86) 98.2 Physical Exam General: Alert, Oriented X3, Cooperative, No acute distress Heart: Regular rate, Normal S1, Normal S2, No murmurs Lungs: Clear Abdomen: Normal bowel sounds, Soft, No tenderness Extremities: No clubbing, No cyanosis, No edema Skin: No rashes, No breakdown, No significant lesion Labs LABS Laboratory Tests Test 12/19/17 03:20 12/19/17 06:20 Hemoglobin 12.0 g/dL (12.0-15.5) Hematocrit 33.8 % (36.0-47.0) Mean Corpuscular Hemoglobin Concent 35 g/dL (31-37) Urine Opiates Screen Pos (NEG) Urine Methadone Screen Neg (NEG) Urine Barbiturates Neg (NEG) Urine Phencyclidine Screen Neg (NEG) Urine Amphetamine/Methamphetamine Neg (NEG) Urine Benzodiazepines Screen Neg (NEG) Urine Cocaine Screen Neg (NEG) Urine Cannabinoids Screen Neg (NEG) Urine Ethyl Alcohol Neg (NEG) Review of Systems Review of Systems Dry heaving, vomited blackish material The rest of ROS 14 point negative Comment Review of Relevant I have reviewed the following items pradeep (where applicable) has been applied. Labs Laboratory Tests Test 12/19/17 03:20 12/19/17 06:20 Hemoglobin 12.0 g/dL (12.0-15.5) Hematocrit 33.8 % (36.0-47.0) Mean Corpuscular Hemoglobin Concent 35 g/dL (31-37) Urine Opiates Screen Pos (NEG) Urine Methadone Screen Neg (NEG) Urine Barbiturates Neg (NEG) Urine Phencyclidine Screen Neg (NEG) Urine Amphetamine/Methamphetamine Neg (NEG) Urine Benzodiazepines Screen Neg (NEG) Urine Cocaine Screen Neg (NEG) Urine Cannabinoids Screen Neg (NEG) Urine Ethyl Alcohol Neg (NEG) Laboratory Tests Test 12/19/17 03:20 12/19/17 06:20 Hemoglobin 12.0 g/dL (12.0-15.5) Hematocrit 33.8 % (36.0-47.0) Mean Corpuscular Hemoglobin Concent 35 g/dL (31-37) Urine Opiates Screen Pos (NEG) Urine Methadone Screen Neg (NEG) Urine Barbiturates Neg (NEG) Urine Phencyclidine Screen Neg (NEG) Urine Amphetamine/Methamphetamine Neg (NEG) Urine Benzodiazepines Screen Neg (NEG) Urine Cocaine Screen Neg (NEG) Urine Cannabinoids Screen Neg (NEG) Urine Ethyl Alcohol Neg (NEG) Medications Current Medications Ondansetron HCl (Zofran) 4 mg PRN Q6HRS PRN IV NAUSEA/VOMITING; Start at 21:45 Oxycodone/ Acetaminophen (Percocet 5/325) 1 tab 1X ONCE PO Last administered on 12/16/17at 22:23; Start 12/16/17 at 22:00; Stop 12/17/17 at 18:11; Status DC Acetaminophen (Tylenol) 650 mg PRN Q6HRS PRN PO MILD PAIN / TEMP; Start at 21:45 Ringer's Solution 1,000 ml @ 75 mls/hr [id number] IV Last administered on at 23:01; Start 12/16/17 at 23:00; Stop 12/17/17 at 18:11; Status DC Trazodone HCl (Desyrel) 50 mg PRN Q6HRS PRN PO HICCUPS Last administered on at 20:10; Start 12/16/17 at 21:45 Pantoprazole Sodium 80 mg/ Sodium Chloride 100 ml @ 10 mls/hr Q10H IV Last administered on 12/17/17at 08:19; Start 12/16/17 at 22:15; Stop 12/17/17 at 15 :09; Status DC Influenza Virus Vaccine (Afluria Trivalent [id number] Syringe) 0.5 ml ONCE ONCE VAX IM Last administered on 12/17/17at 17:47; Start 12/17/17 at 09:00; Stop 12/17/17 at 09:01; Status DC Sodium Chloride (Normal Saline Flush) 3 ml QSHIFT PRN IV AFTER MEDS AND BLOOD DRAWS; Start 12/16/17 at 23:45 Bisacodyl (Dulcolax Supp) 10 mg PRN DAILY PRN [place] CONSTIPATION; Start 12/16/17 at 23:45 Non-Formulary Medication (Albuterol Sulfate (Ventolin Hfa Inhaler)) 2 puff PRN Q4-6HRS IH ; Start 12/16/17 at 23:45; Status UNV Ascorbic Acid (Vitamin C) 1,000 mg BID PO Last administered on 12/19/17at 09:34 ; Start 12/17/17 at 09:00 Sertraline HCl (Zoloft) 100 mg DAILY PO Last administered on 12/19/17at 09:34; Start 12/17/17 at 09:00 Simvastatin (Zocor) 40 mg QHS PO Last administered on 12/18/17at 20:09; Start 12/17/17 at 21:00 Levothyroxine Sodium 75 mcg/ Sodium Chloride 5 ml @ 100 mls/hr DAILY IVP Last administered on 12/18/17at 07:45; Start 12/17/17 at 09:00; Stop 12/18/17 at 09 :00; Status DC Albuterol Sulfate (Ventolin Neb Soln) 2.5 mg PRN Q4HRS PRN NEB SHORTNESS OF BREATH; Start 12/17/17 at 01:00 Midazolam HCl (Versed) 2 mg PRN 1X PRN IV PRIOR TO PROCEDURE; Start 12/17/17 at 10:00; Stop 12/17/17 at 18:00; Status DC Fentanyl Citrate (Fentanyl 2ml Vial) 25 mcg PRN Q5MIN PRN IV X 2 DOSES FOR PAIN ; Start 12/17/17 at 10:00; Stop 12/17/17 at 18:00; Status DC Fentanyl Citrate (Fentanyl 2ml Vial) 50 mcg PRN Q5MIN PRN IV X 2 DOSES FOR PAIN ; Start 12/17/17 at 10:00; Stop 12/17/17 at 18:00; Status DC Ringer's Solution 1,000 ml @ 125 mls/hr Q8H IV Last administered on at 12:05; Start 12/17/17 at 09:56; Stop 12/17/17 at 13:59; Status DC Lidocaine HCl (Xylocaine-Mpf 1% 2ml Vial) 2 ml 1X PRN PRN ID IV START; Start 12/17/17 at 10:00; Stop 12/17/17 at 18:00; Status DC Ondansetron HCl (Zofran) 4 mg PRN Q6HRS PRN IV NAUSEA/VOMITING; Start at 10:30; Stop 12/18/17 at 10:29; Status UNV Fentanyl Citrate (Fentanyl 2ml Vial) 25 mcg PRN Q5MIN PRN IV MILD PAIN; Start 12/17/17 at 10:30; Stop 12/18/17 at 10:29; Status UNV Fentanyl Citrate (Fentanyl 2ml Vial) 50 mcg PRN Q5MIN PRN IV MODERATE TO SEVERE PAIN; Start 12/17/17 at 10:30; Stop 12/18/17 at 10:29; Status UNV Morphine Sulfate (Morphine Sulfate) 1 mg PRN Q10MIN PRN IV SEVERE PAIN; Start 12/17/17 at 10:30; Stop 12/17/17 at 18:11; Status DC Ringer's Solution 1,000 ml @ 30 mls/hr Q24H IV ; Start 12/17/17 at 10:18; Stop 12/17/17 at 22:17; Status UNV Lidocaine HCl (Xylocaine-Mpf 1% 2ml Vial) 2 ml 1X PRN PRN ID IV START; Start 12/17/17 at 10:30; Stop 12/18/17 at 10:29; Status UNV Prochlorperazine Edisylate (Compazine) 5 mg PACU PRN PRN IV NAUSEA, MRX1; Start 12/17/17 at 10:30; Stop 12/17/17 at 19:00; Status DC Oxycodone/ Acetaminophen (Percocet 5/325) 1 tab 1X ONCE PO Last administered on 12/17/17at 10:30; Start 12/17/17 at 10:30; Stop 12/17/17 at 10:31; Status DC Ringer's Solution 1,000 ml @ 75 mls/hr [id number] IV Last administered on at 13:58; Start 12/17/17 at 14:00; Stop 12/17/17 at 18:11; Status DC Propofol 20 ml @ As Directed STK-MED ONCE IV ; Start 12/17/17 at 14:56; Stop 12/17/17 at 14:57; Status DC Sucralfate (Carafate) 1 gm BID@1000,2200 PO Last administered on 12/19/17 09: 34; Start 12/17/17 at 22:00 Pantoprazole Sodium (Protonix) 40 mg DAILYAC PO Last administered on 09:34; Start 12/18/17 at 07:30 Acetaminophen/ Hydrocodone Bitart (Lortab 5/325) 1 tab PRN Q4HRS PRN PO MOD TO SEVERE PAIN Last administered on 12/19/17 05:53; Start 12/17/17 at 17:30 Levothyroxine Sodium (Synthroid) 150 mcg DAILY06 PO Last administered on 05:53; Start 12/19/17 at 06:00 Ferrous Sulfate (Iron Oral Solution) 300 mg BIDWMEALS PO Last administered on 12/18/17 13:29; Start 12/18/17 at 12:30; Stop 12/18/17 at 16:38; Status DC Fluticasone Propionate (Flonase) 2 spray DAILY NS Last administered on at 09:35; Start 12/18/17 at 14:30 Throat Lozenges (Cepacol Sore Throat Lozenge) 1 [place] PRN Q2HRS PRN PO SORE THROAT; Start 12/18/17 at 13:45; Status UNV Pseudoephedrine HCl (Sudafed 12-Hour) 120 mg BID PO Last administered on 09:34; Start 12/18/17 at 14:30 Meclizine HCl (Antivert) 25 mg TID PO Last administered on 12/19/17 09:34; Start 12/18/17 at 16:00 Ferrous Sulfate (Feosol) 325 mg BID PO Last administered on 12/19/17at 09:34; Start 12/18/17 at 21:00 Active Scripts Active Meclizine Hcl 25 Mg Tablet 1 Tab PO PRN TID [Pantoprazole] 40 MG Tablet.dr 40 Mg PO DAILYAC 30 Days Carafate (Sucralfate) 1 Gm Tablet 1 Gm PO BID@1000,2200 30 Days Ferrous Sulfate 325 Mg Tablet 1 Tab PO DAILY Reported Children's Aspirin (Aspirin) 81 Mg Tab.chew 81 Mg PO DAILY Colace (Docusate Sodium) 100 Mg Capsule 1 Cap PO PRN Zoloft (Sertraline Hcl) 100 Mg Tablet 1 Tab PO BID Vitamin C (Ascorbic Acid) 1,000 Mg Tablet 1,000 Mg PO BID Ferrous Sulfate 325 Mg Tablet 500 Mg PO BID Cyclobenzaprine Hcl 10 Mg Tablet 10 Mg PO PRN TID PRN Levothyroxine Sodium 150 Mcg Tablet 150 Mcg PO DAILYAC Sertraline Hcl 100 Mg Tablet 100 Mg PO DAILY Simvastatin 40 Mg Tablet 1 Tab PO QHS Ventolin Hfa Inhaler (Albuterol Sulfate) 18 Gm Hfa.aer.ad 2 Puff IH PRN Q4-6HRS Vitals/I & O Vital Sign - Last 24 Hours 12/18/17 12/18/17 12/18/17 12/18/17 11:00 11:05 11:08 13:30 Temp 98.1 98.1 Pulse 55 B/P (MAP) 118/55 (76) 107/52 (70) 104/40 (61) Pulse Ox 97 97 O2 Delivery Room Air Room Air O2 Flow Rate 95.8 12/18/17 12/18/17 12/18/17 12/18/17 15:00 19:22 20:00 20:10 Temp 98.4 98.1 98.4 98.1 Pulse 56 56 Resp 20 18 B/P (MAP) 108/36 (60) 109/52 (71) Pulse Ox 91 94 O2 Delivery Room Air Room Air Room Air Room Air 12/18/17 12/19/17 12/19/17 12/19/17 23:28 03:00 04:04 05:53 Temp 98.3 97.7 97.7 98.3 97.7 97.7 Pulse 53 59 59 Resp 18 18 18 B/P (MAP) 134/57 (82) 161/95 (117) 161/95 (117) Pulse Ox 96 100 100 O2 Delivery Room Air Room Air Room Air Room Air 12/19/17 12/19/17 12/19/17 07:10 07:24 08:00 Temp 98.2 98.2 Pulse 55 Resp 18 B/P (MAP) 132/64 (86) Pulse Ox 94 100 O2 Delivery Room Air Room Air Room Air O2 Flow Rate 95.8 Intake and Output 12/18/17 12/18/17 12/19/17 15:00 23:00 07:00 Intake Total 460 ml 250 ml Balance 460 ml 250 ml BRIGITTE AKINS MD Dec 19, 2017 10:42
--- NOTE | 2017-12-19 12:33 | RAD ---
MRI of the brain without contrast 12/19/2017 Clinical History: Unsteady gait with speech difficulty. Dizziness. Abnormal movements. Technique: Unenhanced T1-weighted sagittal and axial, T2-weighted axial and coronal and FLAIR, gradient echo and diffusion-weighted axial images of the brain were obtained. Findings: Comparison is made to patient's CT scan of the head dated 01/12/2015. There is generalized parenchymal atrophy. Patchy and several small scattered areas of increased signal intensity are seen within the periventricular and subcortical white matter of both cerebral hemispheres on the FLAIR and T2-weighted images consistent with areas of mild small vessel ischemic disease. No acute parenchymal abnormality is seen. No extra-axial fluid collection is seen. There is no MRI evidence of acute ischemia/infarction. Mild mucosal thickening in seen scattered throughout the paranasal sinuses. A 1 cm mucous retention cyst is seen within the right maxillary sinus. There are minimal bilateral mastoid effusions. Normal flow voids are seen within the major vascular structures surrounding the brain parenchyma. Impression: No acute parenchymal abnormality is seen. Electronically signed by: Orlando Fernández MD (12/19/2017 12:31 PM) [id number]
--- NOTE | 2017-12-19 14:36 | PDOC ---
Subjective: Subjective: I saw her earlier this afternoon. Not feeling the best - vomited "black stuff" earlier. Objective: Objective: Per RN - vomited earlier, has DC orders. Vital Signs: Vital Signs Date Time Temp Pulse Resp B/P (MAP) Pulse Ox O2 Delivery O2 Flow Rate FiO2 12/19/17 11:15 97.5 64 18 142/61 (88) 96 Room Air 97.5 12/19/17 07:24 95.8 Labs: Laboratory Tests Test 12/19/17 03:20 12/19/17 06:20 Hemoglobin 12.0 g/dL Hematocrit 33.8 % Mean Corpuscular Hemoglobin Concent 35 g/dL Urine Opiates Screen Pos Urine Methadone Screen Neg Urine Barbiturates Neg Urine Phencyclidine Screen Neg Urine Amphetamine/Methamphetamine Neg Urine Benzodiazepines Screen Neg Urine Cocaine Screen Neg Urine Cannabinoids Screen Neg Urine Ethyl Alcohol Neg Imaging: Brain MRI Impression: No acute parenchymal abnormality is seen. Carotid Doppler IMPRESSION: Minimal atherosclerotic plaquing at the carotid bifurcations with underlying luminal narrowing in the 0-50 percent diameter range bilaterally. PE: GEN: NAD, was asleep LUNGS: CTAB HEART: RRR ABD: mild epigastric/periumbilical discomfort NEURO/PSYCH: A & O 3 A/P: Coffee-ground emesis - ?recurrence this morning, Hgb improved -gastritis on EGD, path pending -on PPI, Carafate, and iron -- Has DC orders - ?hold w/ vomiting this morning Not sure cause of "black" emesis - ?iron Follow-up as outpt for SBCE. NICOLE GIBBONS Dec 19, 2017 14:36
--- NOTE | 2017-12-19 15:50 | PDOC ---
PROGRESS NOTES Assessment Assessment Worsening of dizziness. Gait instability. Abnormal semi controllable movements. Vertigo. BPPV likely. Peptic ulcer disease. Gastritis. Obesity. No evidence of posterior CVA this time. RECOMMENDATIONS/PLAN: Continue Meclizine 12.5 mg to 25 mg tid for 1 week. Treat medical diseases. FU with PCP. Discussed with her daughter at bedside on 12/08/17. Carotid A US + Doppler on 12/18/17: No high grade stenosis. HISTORY OF THE PRESENT ILLNESS: 72-y-old female patient with above medical and GI diseases was admitted into [facility] for further evaluation. While performing EGD procedure on her, she developed symptoms of dizziness, light headiness, vertigo , sense of room and self spinning. Her symptoms persistent and became obvious when she change positions, but orthostatic hypotension occurred. She stated she had similar symptoms before about several times a year, but nerve as severe as this time. Her symptoms of dizziness, light headiness and vertigo improved on 12/19/17. PAST MEDICAL HISTORY: AVR, asthma, GI bleeds, peptic ulcer disease. Vertigo. PAST SURGERY HISTORY: Right rotator cuff, cataract surgery, cholecystectomy, appendectomy, hysterectomy. ALLERGIES: MUSHROOMS and PROCAINE. FAMILY HISTORY: Diabetes. MEDICATIONS: Refer to [facility] SOCIAL HISTORY: Lives at home. Denies current smoking, drinking, and illicit drug use. She was a former smoker. REVIEW OF SYSTEMS: Constitutional: Obesity. Head: No traumatic brain or head injury. Skin: No edema, or rash. Ear: No infection. Eyes: No vision loss or color blindness. Nose: No bleeding or purulent discharges. Hearing: Hearing decrease. Neck: No injury. Breast: No history of cancer, masses,or discharges. Cardiac: No [place], arrhythmia.. Pulmonary: No COPD. GI: GI ulcer, GI bleeding. Urinary/genital: UTI. Endocrinologic: Obesity. Skeletomuscular: No muscular atrophy, deformity. Neurological: see HP. Psychiatric: Denies drug use/abuse. Otherwise, not [id number] review of systems. PHYSICAL EXAMINATION: General appearance is in subacute distress. HEENT: Normocephalic and nontraumatic. Eyes, nose, ears, and throat are unremarkable. Neck is supple. No lymphadenopathy. No bruits are heard over the carotid artery. No crepitus. Cardiovascular: S1, S2, regular rate and rhythm. Pulmonary: Clear to auscultation bilaterally. Abdomen: Bowel sounds are positive. Extremities: No rash, lesions, or edema. No restriction of range of motion NEUROLOGICAL EXAMINATION: Alert Oriented to time, place and person. PERRL. EOMI. CN: no focal findings. Muscle tone: within normal. Muscle strength: 5 DTR: 2 Plantar reflex: Flexor response bilaterally Gait: Able to walk. Sensory exam: no abnormal findings. No cerebellar signs elicited. F-T-N test fine. Continued writher like movements noted in UE and LE. Objective Objective Vital Signs Date Time Temp Pulse Resp B/P (MAP) Pulse Ox O2 Delivery O2 Flow Rate FiO2 12/19/17 15:15 98.7 62 18 142/58 (86) 96 Room Air 98.7 12/19/17 07:24 95.8 Intake and Output 12/19/17 07:00 Intake Total 710 ml Balance 710 ml Intake Oral 710 ml # Voids 5 Vitals Signs Vitals VS - Last 72 Hours, by Label Date Time Temp Pulse Resp B/P (MAP) Pulse Ox O2 Delivery O2 Flow Rate FiO2 12/19/17 15:15 98.7 62 18 142/58 (86) 96 Room Air 98.7 12/19/17 11:15 97.5 64 18 142/61 (88) 96 Room Air 97.5 12/19/17 08:00 Room Air 12/19/17 07:24 100 Room Air 95.8 12/19/17 07:10 98.2 55 18 132/64 (86) 94 Room Air 98.2 12/19/17 05:53 Room Air 12/19/17 04:04 97.7 59 18 161/95 (117) 100 Room Air 97.7 12/19/17 03:00 97.7 59 18 161/95 (117) 100 Room Air 97.7 12/18/17 23:28 98.3 53 18 134/57 (82) 96 Room Air 98.3 12/18/17 20:10 Room Air 12/18/17 20:00 Room Air 12/18/17 19:22 98.1 56 18 109/52 (71) 94 Room Air 98.1 12/18/17 15:00 98.4 56 20 108/36 (60) 91 Room Air 98.4 12/18/17 13:30 97 Room Air 95.8 12/18/17 11:08 104/40 (61) 12/18/17 11:05 107/52 (70) 12/18/17 11:00 98.1 55 118/55 (76) 97 Room Air 98.1 12/18/17 08:45 54 100/63 (75) 12/18/17 08:11 92 Room Air 95.8 12/18/17 08:00 Room Air 12/18/17 07:00 97.7 51 16 99/57 (71) 92 Room Air 97.7 Laboratory Laboratory Laboratory Tests Test 12/19/17 03:20 12/19/17 06:20 Hemoglobin 12.0 g/dL (12.0-15.5) Hematocrit 33.8 % (36.0-47.0) Mean Corpuscular Hemoglobin Concent 35 g/dL (31-37) Urine Opiates Screen Pos (NEG) Urine Methadone Screen Neg (NEG) Urine Barbiturates Neg (NEG) Urine Phencyclidine Screen Neg (NEG) Urine Amphetamine/Methamphetamine Neg (NEG) Urine Benzodiazepines Screen Neg (NEG) Urine Cocaine Screen Neg (NEG) Urine Cannabinoids Screen Neg (NEG) Urine Ethyl Alcohol Neg (NEG) Medication Medications Current Medications Ferrous Sulfate (Feosol) 325 mg BID PO Last administered on 12/19/17at 09:34; Start 12/18/17 at 21:00 Levothyroxine Sodium (Synthroid) 150 mcg DAILY06 PO Last administered on at 05:53; Start 12/19/17 at 06:00 Meclizine HCl (Antivert) 25 mg TID PO Last administered on 12/19/17at 15:14; Start 12/18/17 at 16:00 Comment Review of Relevant I have reviewed the following items pradeep (where applicable) has been applied. YAO COSME MD Dec 19, 2017 15:50
--- NOTE | 2017-12-19 16:09 | PATHOLOGY ---
[facility] Accession Number: [id number] . 01 Material submitted: . ANTRUM . 01 Clinical history: . GI bleed . 02 Diagnosis: Gastric biopsy, antrum: - Congestion and slight chronic inflammation. . (JPM:vjm;12/19/2017) AGA/12/19/2017 . 02 Comment: Sections of the gastric antral biopsy show congestion and slight chronic inflammation. A properly controlled immunoperoxidase stain for Helicobacter is negative for Helicobacter organisms. There is no evidence of malignancy. . (JPM:vjm;12/19/2017) . 02 Electronically signed: . Vic Garcia MD, Pathologist NPI- [id number] . 01 Gross description: . Received in formalin labeled "Oscar, Lindsey, antrum," is a single segment of worthy soft tissue measuring 0.6 cm in maximum dimension. The specimen is entirely submitted in cassette A1. (TSD; 12/18/2017) TOB/TOB . 02 Pathologist provided ICD-10: K29.50 . 02 CPT . 255583, [id number] Specimen Comment: A courtesy copy of this report has been sent to Specimen Comment: [phone], . Specimen Comment: Report sent to / DR RUBY Specimen Comment: A duplicate report has been generated due to demographic updates. Performed at: [facility] [address] [facility] [address], [place] [id number] MD Edilberto Roman MD Phone: [phone] Performed at: [address] [facility] [address] [facility] [address] [place], [place] [id number] MD Vic Garcia MD Phone: [phone]
[2017-12-19] MEDS: traZODone 50 MG TABLET. PO PRN (20:09)
[2017-12-19] MEDS: SIMVASTATIN 40 MG TABLET. PO SCH (20:10)
[2017-12-20 03:00] VITALS: BP 121/69
[2017-12-20] MEDS: LEVOTHYROXINE 150 MCG TABLET PO SCH (06:14)
[2017-12-20 07:00] VITALS: BP 102/61
[2017-12-20] MEDS: FERROUS SULFATE 325 MG TABLET. PO SCH (08:31)
[2017-12-20] MEDS: ASCORBIC ACID 500 MG TABLET PO SCH (08:31)
[2017-12-20] MEDS: PSEUDOEPHEDRINE ER 120 MG TABLET.ER. PO SCH (08:31)
[2017-12-20] MEDS: PANTOPRAZOLE 40 MG TABLET.DR. PO SCH (08:31)
[2017-12-20] MEDS: MECLIZINE HCL 12.5 MG TABLET. PO SCH ×2 (08:31→14:59)
[2017-12-20] MEDS: SERTRALINE 50 MG TABLET. PO SCH (08:32)
[2017-12-20] MEDS: FLUTICASONE 50MCG/NASAL SPRAY 16GM BOTTLE. NS SCH (08:32)
[2017-12-20] MEDS: SUCRALFATE 1 GM TABLET. PO SCH (10:39)
[2017-12-20 11:00] VITALS: BP 131/76
--- NOTE | 2017-12-20 11:35 | PDOC ---
Subjective: Subjective: Feels better today. Retched about 1 hour after breakfast (richard, potatoes, toast) and spit out a hunk of something - kept in specimen cup. Objective: Vital Signs: Vital Signs Date Time Temp Pulse Resp B/P (MAP) Pulse Ox O2 Delivery O2 Flow Rate FiO2 12/20/17 08:00 Room Air 12/20/17 07:00 97.7 58 16 102/61 (75) 93 97.7 12/19/17 07:24 95.8 Labs: Diagnosis: Gastric biopsy, antrum: - Congestion and slight chronic inflammation. Comment: Sections of the gastric antral biopsy show congestion and slight chronic inflammation. A properly controlled immunoperoxidase stain for Helicobacter is negative for Helicobacter organisms. There is no evidence of malignancy. PE: GEN: NAD LUNGS: CTAB HEART: RRR ABD: S/ND/NT NEURO/PSYCH: A & O 3 OTHER: in specimen cup, ~2 inch light colored soft material w/ streaks of brown (?toast ?potato) A/P: Coffee-ground emesis - resolved -H. pylori negative gastritis on EGD -- Not sure what she spit up this morning but she feels better. DC per primary on PPI, Carafate, and iron. Follow-up for SBCE. NICOLE GIBBONS Dec 20, 2017 11:35
--- NOTE | 2017-12-20 12:25 | PDOC3 ---
Discharge Summary Visit Information Date of Admission: Dec 16, 2017 Date of Discharge: Dec 20, 2017 Final Diagnosis GAstritis, small hiatal hernia status post EGD 12/17/17 Coffee-ground emesis H/o anemia - required blood transfusion and IV iron in 09/2017, has been on PO iron BID H/o "small bowel ulcers" - reportedly on SBCE in 2010 Occasional heartburn CRC screen - UTD, reports last colonoscopy w/ Dr. Das in 2014 H/o AVR on ASA ORTHOSTASIS with dizziness Brief Hospital Course Allergies Allergies Coded Allergies Type Severity Reaction Last Updated Verified mushroom Allergy Severe Swelling 12/17/17 Yes procaine Allergy Intermediate 12/17/17 Yes Vital Signs Vital Signs Date Time Temp Pulse Resp B/P (MAP) Pulse Ox O2 Delivery O2 Flow Rate FiO2 12/20/17 11:00 95.4 67 20 131/76 (94) 93 Room Air 95.4 12/19/17 07:24 95.8 Lab Results Laboratory Tests Test 12/19/17 03:20 12/19/17 06:20 Hemoglobin 12.0 g/dL (12.0-15.5) Hematocrit 33.8 % (36.0-47.0) Mean Corpuscular Hemoglobin Concent 35 g/dL (31-37) Urine Opiates Screen Pos (NEG) Urine Methadone Screen Neg (NEG) Urine Barbiturates Neg (NEG) Urine Phencyclidine Screen Neg (NEG) Urine Amphetamine/Methamphetamine Neg (NEG) Urine Benzodiazepines Screen Neg (NEG) Urine Cocaine Screen Neg (NEG) Urine Cannabinoids Screen Neg (NEG) Urine Ethyl Alcohol Neg (NEG) Brief Hospital Course Ms. Moore is a 72 old white female who lives at home, no assistive device of ambulation, comes in because of coffee-ground emesis, EGD done 12/17/17 showed gastritis and small hiatal hernia. Course remarkable for orthostatic hypotension symptomatic with dizziness. Abdominal binder prescribed. Seen by neurology, MRI of the brain is negative. No more orthostasis. Course remarkable for some coughing up of small tissue-like material. Otherwise tolerating diet and cleared by GI to go home on PPI and Carafate which I have Rx'd. Also Rx the meclizine as that seemed to help his dizziness. Consults: Gi, neuro Proc; EGD NO PT needs, home today Discharge Information Condition at Discharge: Improved, Stable Disposition/Orders: D/C to Home Scheduled Albuterol Sulfate (Ventolin Hfa Inhaler) 18 Gm Hfa.aer.ad, 2 PUFF IH PRN Q4-6HRS , #1 (Reported) Entered as Reported by: LOLA POSEY on 01/24/152344 Last Action: Converted on 12/16/172342 by CHIDI BOOTHE MD Ascorbic Acid (Vitamin C) 1,000 Mg Tablet, 1,000 MG PO BID, (Reported) Entered as Reported by: KOJO YANEZ on 12/16/172053 Last Taken: 1,000 on 12/16/17 0730 Last Action: Converted on 12/16/172342 by CHIDI BOOTHE MD Aspirin (Children's Aspirin) 81 Mg Tab.chew, 81 MG PO DAILY, (Reported) Entered as Reported by: KOJO YANEZ on 12/16/172154 Last Taken: Unknown Dose on 12/16/17 0800 Last Action: HELD on 12/16/172341 by CHIDI BOOTHE MD Docusate Sodium (Colace) 100 Mg Capsule, 1 CAP PO PRN, #30 (Reported) Entered as Reported by: KOJO YANEZ on 12/16/172055 Last Taken: Unknown Dose on 12/15/17 0800 Last Action: HELD on 12/16/172341 by CHIDI BOOTHE MD Ferrous Sulfate (Ferrous Sulfate) 325 Mg Tablet, 1 TAB PO DAILY, #30 Ref 3 Prescribed by: BRIGITTE AKINS on 01/27/15 1018 Last Action: HELD on 12/16/172341 by CHIDI BOOTHE MD Ferrous Sulfate (Ferrous Sulfate) 325 Mg Tablet, 500 MG PO BID, (Reported) Entered as Reported by: KOJO YANEZ on 12/16/172053 Last Taken: UNKNOWN on Unknown Date & Time Last Action: HELD on 12/16/172341 by CHIDI BOOTHE MD Levothyroxine Sodium (Levothyroxine Sodium) 150 Mcg Tablet, 150 MCG PO DAILYAC for THYROID SUPPLEMENT, #30 Ref 0 (Reported) Entered as Reported by: DEMAR BYRNES RPH on 01/25/15 1121 Last Action: Reviewed on 12/16/172055 by KOJO YANEZ Meclizine Hcl (Meclizine Hcl) 25 Mg Tablet, 1 TAB PO PRN TID, #30 Prescribed by: BRIGITTE AKINS on 12/19/17 0831 Sertraline Hcl (Sertraline Hcl) 100 Mg Tablet, 100 MG PO DAILY for ANTI- DEPRESSANT, Ref 0 (Reported) Entered as Reported by: DEMAR BYRNES [facility] on 01/25/15 1121 Last Action: Converted on 12/16/172342 by CHIDI BOOTHE MD Sertraline Hcl (Zoloft) 100 Mg Tablet, 1 TAB PO BID, #30 Ref 5 (Reported) Entered as Reported by: KOJO YANEZ on 12/16/172054 Last Taken: Unknown Dose on 12/16/17 0800 Last Action: HELD on 12/16/172341 by CHIDI BOOTHE MD Simvastatin (Simvastatin) 40 Mg Tablet, 1 TAB PO QHS, #30 Ref 5 (Reported) Entered as Reported by: LOLA POSEY on 01/24/152345 Last Action: Converted on 12/16/172342 by CHIDI BOOTHE MD Sucralfate (Carafate) 1 Gm Tablet, 1 GM PO BID@1000,2200 for 30 Days Prescribed by: BRIGITTE AKINS on 12/18/17 1152 [Pantoprazole] 40 MG TABLET.DR, 40 MG PO DAILYAC for 30 Days Prescribed by: BRIGITTE AKINS on 12/18/17 1152 Scheduled PRN Cyclobenzaprine Hcl (Cyclobenzaprine Hcl) 10 Mg Tablet, 10 MG PO PRN TID PRN for spasm, (Reported) Entered as Reported by: DEMAR BYRNES RPH on 01/25/15 1128 Last Action: HELD on 12/16/172341 by MD MABLE MYLES CHERRIE Y MD Dec 20, 2017 12:25
[2017-12-20 15:00] VITALS: BP 134/63
--- NOTE | 2017-12-20 16:31 | PDOC ---
PROGRESS NOTES Assessment Assessment Worsening of dizziness. Gait instability. Abnormal semi controllable movements. Vertigo. BPPV likely. Peptic ulcer disease. Gastritis. Obesity. Anxiety. No evidence of posterior CVA this time. RECOMMENDATIONS/PLAN: Continue Meclizine 12.5 mg to 25 mg tid for 1 week. Treat medical diseases. FU with PCP. Discussed with her daughter at bedside on 12/18/17. Carotid A US + Doppler on 12/18/17: No high grade stenosis. HISTORY OF THE PRESENT ILLNESS: 72-y-old female patient with above medical and GI diseases was admitted into [facility] for further evaluation. While performing EGD procedure on her, she developed symptoms of dizziness, light headiness, vertigo , sense of room and self spinning. Her symptoms persistent and became obvious when she change positions, but orthostatic hypotension occurred. She stated she had similar symptoms before about several times a year, but nerve as severe as this time. Her symptoms of dizziness, light headiness and vertigo improved since 12/19/17. PAST MEDICAL HISTORY: AVR, asthma, GI bleeds, peptic ulcer disease. Vertigo. PAST SURGERY HISTORY: Right rotator cuff, cataract surgery, cholecystectomy, appendectomy, hysterectomy. ALLERGIES: MUSHROOMS and PROCAINE. FAMILY HISTORY: Diabetes. MEDICATIONS: Refer to [facility] SOCIAL HISTORY: Lives at home. Denies current smoking, drinking, and illicit drug use. She was a former smoker. REVIEW OF SYSTEMS: Constitutional: Obesity. Head: No traumatic brain or head injury. Skin: No edema, or rash. Ear: No infection. Eyes: No vision loss or color blindness. Nose: No bleeding or purulent discharges. Hearing: Hearing decrease. Neck: No injury. Breast: No history of cancer, masses,or discharges. Cardiac: No [place], arrhythmia.. Pulmonary: No COPD. GI: GI ulcer, GI bleeding. Urinary/genital: UTI. Endocrinologic: Obesity. Skeletomuscular: No muscular atrophy, deformity. Neurological: see HP. Psychiatric: Denies drug use/abuse. Otherwise, not [id number] review of systems. PHYSICAL EXAMINATION: General appearance is in subacute distress. HEENT: Normocephalic and nontraumatic. Eyes, nose, ears, and throat are unremarkable. Neck is supple. No lymphadenopathy. No bruits are heard over the carotid artery. No crepitus. Cardiovascular: S1, S2, regular rate and rhythm. Pulmonary: Clear to auscultation bilaterally. Abdomen: Bowel sounds are positive. Extremities: No rash, lesions, or edema. No restriction of range of motion NEUROLOGICAL EXAMINATION: Alert Oriented to time, place and person. PERRL. EOMI. CN: no focal findings. Muscle tone: within normal. Muscle strength: 5 DTR: 2 Plantar reflex: Flexor response bilaterally Gait: Able to walk. Sensory exam: no abnormal findings. No cerebellar signs elicited. F-T-N test fine. Writher like movements noted in UE and LE. Objective Objective Vital Signs Date Time Temp Pulse Resp B/P (MAP) Pulse Ox O2 Delivery O2 Flow Rate FiO2 12/20/17 15:00 97.9 56 20 134/63 (86) 96 Room Air 97.9 12/19/17 07:24 95.8 Intake and Output 12/20/17 07:00 Intake Total 400 ml Output Total 100 ml Balance 300 ml Intake Oral 400 ml Output Emesis 100 ml # Voids 7 Vitals Signs Vitals VS - Last 72 Hours, by Label Date Time Temp Pulse Resp B/P (MAP) Pulse Ox O2 Delivery O2 Flow Rate FiO2 12/20/17 15:00 97.9 56 20 134/63 (86) 96 Room Air 97.9 12/20/17 11:00 95.4 67 20 131/76 (94) 93 Room Air 95.4 12/20/17 08:00 Room Air 12/20/17 07:00 97.7 58 16 102/61 (75) 93 Room Air 97.7 12/20/17 03:00 97.2 55 18 121/69 (86) 95 Room Air 97.2 12/19/17 23:30 97.4 58 16 103/55 (71) 93 Room Air 97.4 12/19/17 21:09 18 95 Room Air 12/19/17 20:09 18 95 Room Air 12/19/17 20:00 Room Air 12/19/17 19:49 99.3 64 18 112/85 (94) 95 Room Air 99.3 12/19/17 15:15 98.7 62 18 142/58 (86) 96 Room Air 98.7 12/19/17 11:15 97.5 64 18 142/61 (88) 96 Room Air 97.5 12/19/17 08:00 Room Air 12/19/17 07:24 95.8 12/19/17 07:10 98.2 55 18 132/64 (86) 94 Room Air 98.2 Comment Review of Relevant I have reviewed the following items pradeep (where applicable) has been applied. YAO COSME MD Dec 20, 2017 16:31
== END 2017-12-20 17:45 | disposition home or self-care (01) | DRG 391 ==
LOC: 1 WEST ICU 20:38 → 6 SOUTH 12-17 18:05
PROVIDERS: ADMIT Internal Medicine; ATTEND Internal Medicine
PROC: 0DB68ZX Excision of Stomach, Via Natural or Artificial Opening Endoscopic, Diagnostic (ICD-10-PCS; principal; 2017-12-17 15:00)
DX: K44.9 Diaphragmatic hernia without obstruction or gangrene (principal); K29.71 Gastritis, unspecified, with bleeding; D64.9 Anemia, unspecified; E66.9 Obesity, unspecified; F41.9 Anxiety disorder, unspecified; I95.1 Orthostatic hypotension; J45.909 Unspecified asthma, uncomplicated; Z68.30 Body mass index [BMI] 30.0-30.9, adult; Z87.11 Personal history of peptic ulcer disease; Z87.891 Personal history of nicotine dependence; Z90.49 Acquired absence of other specified parts of digestive tract; Z90.710 Acquired absence of both cervix and uterus; Z88.8 Allergy status to other drugs, medicaments and biological substances; Z79.899 Other long term (current) drug therapy; Z83.3 Family history of diabetes mellitus; H81.10 Benign paroxysmal vertigo, unspecified ear
CPT/HCPCS: 36415; 43239; 70551; 80048; 80307; 82607; 83540; 83550; 84443; 85014; 85018; 85027; 85045; 85730; 87641; 88305; 88342; 90471; 90756; 93880; 94760; C9113; J2704; J7120; J8597; 97116; 97530; 97535; G0479; Q2035